=== PATIENT | female | born 1980 | race Caucasian/White ===

== ENCOUNTER → 2017-03-30 | Outpatient (CLI) | payer BC ==
--- NOTE | 2017-03-30 08:53 | KCIC ---
PQRS Compliance Statement: One or more of the following individualized dose reduction techniques were utilized for this examination: 1. Automated exposure control 2. Adjustment of the mA and/or kV according to patient size 3. Use of iterative reconstruction technique CT MAXILLOFACIAL WO CONTRAST Clinical Indication: Recurrent sinusitis, congestion, drainage. Comparison: None. TECHNIQUE: Helical CT imaging of the paranasal sinuses from the skull vertex through the skull base is performed using [employer] protocol without IV contrast. Findings: The mastoid air cells are aerated. The paranasal sinuses are clear. No air-fluid level or wall thickening. Bony nasal septum is midline. The ostiomeatal complexes are narrow but patent. No acute facial bone abnormality. No obvious midline shift or mass effect in the brain, study not protocol for its evaluation. Globes and orbits are intact. IMPRESSION: The ostiomeatal complexes are patent and the paranasal sinuses are clear. Electronically signed by: Cain Little MD (03/30/2017 8:50 AM) [id number]
== END | disposition home or self-care (01) ==
LOC: KCIC CT 08:16
PROVIDERS: ATTEND Otolaryngology
DX: J32.9 Chronic sinusitis, unspecified (principal); R09.81 Nasal congestion
CPT/HCPCS: 70486